=== PATIENT | male | born 1975 | race Caucasian/White ===

== ENCOUNTER 2017-03-24 22:43 | Emergency (ER) | payer OTHER ==
[2017-03-24 22:49] VITALS: BP 156/84; PULSE 120; RESP 20; TEMP 98
[2017-03-24] MEDS ORDERED: DIPH,PERTUS(ACELL)TETVAC-LF 0.5 ML VIAL IM ONE (23:03)
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
== END 2017-03-24 23:41 | disposition home or self-care (01) ==
LOC: EC 22:43
DX: S30.811A Abrasion of abdominal wall, initial encounter (principal); S20.312A Abrasion of left front wall of thorax, initial encounter; S80.811A Abrasion, right lower leg, initial encounter; S20.411A Abrasion of right back wall of thorax, initial encounter; F41.9 Anxiety disorder, unspecified; F17.200 Nicotine dependence, unspecified, uncomplicated; Z23 Encounter for immunization; Z79.899 Other long term (current) drug therapy; X99.1XXA Assault by knife, initial encounter
CPT/HCPCS: 90471; 90715; 99282

== ENCOUNTER 2017-05-20 18:25 | Emergency (ER) | payer OTHER ==
[2017-05-20 19:05] VITALS: BP 162/97; PULSE 86; RESP 20; TEMP 97.5
[2017-05-20] MEDS ORDERED: HYDROcodone/APAP 5-325MG 1 EACH TAB PO STA (19:27)
--- NOTE | 2017-05-20 19:49 | XR ---
EXAMINATION TYPE: XR elbow complete LT DATE OF EXAM: 05/20/2017 COMPARISON: NONE HISTORY: Pain and swelling TECHNIQUE: 3 views FINDINGS: I see no fracture nor dislocation. Joint spaces are normal. There is no sign of elbow joint effusion. There is some soft tissue swelling over the olecranon process. There is a small exostosis on the anterior distal shaft of the humerus. IMPRESSION: There is probably some olecranon bursitis. No fracture seen.
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
== END 2017-05-20 20:27 | disposition home or self-care (01) ==
LOC: EC 18:25
DX: S80.212A Abrasion, left knee, initial encounter (principal); M70.22 Olecranon bursitis, left elbow; F17.200 Nicotine dependence, unspecified, uncomplicated; V00.831A Fall from motorized mobility scooter, initial encounter; Y92.410 Unspecified street and highway as the place of occurrence of the external cause; Y93.89 Activity, other specified
CPT/HCPCS: 99283

== ENCOUNTER 2018-03-03 21:07 | Emergency (ER) | payer OTHER ==
[2018-03-03 21:42] VITALS: BP 155/94; PULSE 91; RESP 18; TEMP 98.2
--- NOTE | 2018-03-03 22:58 | XR ---
PROCEDURE: XR elbow complete LT 3 views DATE AND TIME: 03/03/2018 9:49 PM REFERRING PHYSICIAN: Oliverio Caldwell CLINICAL INDICATION: PHH, Pain TECHNIQUE: Department protocol. COMPARISON: None FINDINGS: There is no fracture or malalignment. Scattered degenerative osteoarthritis changes are appreciated. Also, subcentimeter exostosis consistent with osteochondroma noted distal humerus shaft anteriorly. The soft tissues are unremarkable. IMPRESSION: NO ACUTE PROCESS.
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
== END 2018-03-03 23:10 | disposition home or self-care (01) ==
LOC: EC 21:07
DX: D16.02 Benign neoplasm of scapula and long bones of left upper limb (principal); M19.022 Primary osteoarthritis, left elbow; F17.200 Nicotine dependence, unspecified, uncomplicated; W20.8XXA Other cause of strike by thrown, projected or falling object, initial encounter; Y93.89 Activity, other specified; Y92.009 Unspecified place in unspecified non-institutional (private) residence as the place of occurrence of the external cause
CPT/HCPCS: 99283

== ENCOUNTER 2018-03-18 03:59 | Emergency (ER) | payer OTHER ==
[2018-03-18 04:17] VITALS: BP 158/99; PULSE 87; RESP 28; TEMP 97.6
[2018-03-18] MEDS ORDERED: IBUPROFEN 400 MG TAB PO STA (04:40)
[2018-03-18] MEDS ORDERED: HYDROcodone/APAP 5-325MG 1 EACH TAB PO STA (04:40)
[2018-03-18] MEDS ORDERED: PENICILLIN VK 500MG STARTER 4 TAB BTL PO STA (04:40)
--- NOTE | 2018-03-18 04:41 | ED ---
ENT HPI - General Chief complaint: Dental/Oral Stated complaint: Dental Pain Time Seen by Provider: 03/18/18 04:18 Source: patient Mode of arrival: ambulatory Limitations: no limitations - History of Present Illness MD complaint: tooth pain -: days(s) Location: tooth # (10) Severity: severe Quality: aching Consistency: constant Improves with: none Worsens with: none Context- Dental: history of dental caries Associated Symptoms: toothache - Related Data Previous Rx's Medication Instructions Recorded Ibuprofen [Motrin] 600 mg PO Q8HR PRN #20 tab 03/03/18 Hydrocodone/Acetaminophen [[place] 1 each PO Q4HR PRN #15 tab 03/18/18 5-325] Ibuprofen [Motrin] 600 mg PO Q8HR PRN #20 tab 03/18/18 Penicillin V Potassium [Pen Vee K] 500 mg PO Q6H #28 tablet 03/18/18 Allergies Allergy/AdvReac Type Severity Reaction Status Date / Time No Known Allergies Allergy Verified 03/18/18 04:17 Review of Systems ROS Statement: Those systems with pertinent positive or pertinent negative responses have been documented in the HPI. ROS Other: All systems not noted in ROS Statement are negative. Constitutional: Denies: fever, chills Eyes: Denies: eye pain, vision change ENT: Denies: ear pain, throat pain Respiratory: Denies: cough, dyspnea Cardiovascular: Denies: palpitations Neurological: Denies: headache Past Medical History Past Medical History: No Reported History History of Any Multi-Drug Resistant Organisms: None Reported Past Surgical History: No Surgical Hx Reported Past Psychological History: Anxiety, Bipolar, Depression Smoking Status: Current every day smoker Past Alcohol Use History: None Reported Past Drug Use History: Marijuana General Exam Limitations: no limitations General appearance: alert, in no apparent distress Head exam: Present: atraumatic, normocephalic Eye exam: Present: normal appearance, PERRL, EOMI. Absent: scleral icterus, conjunctival injection, nystagmus, periorbital swelling, periorbital tenderness ENT exam: Present: other (Dental caries. No abscess or swelling) Neck exam: Present: normal inspection, full ROM. Absent: tenderness, meningismus, lymphadenopathy Course Vital Signs 03/18/18 04:14 Temperature 97.6 F Pulse Rate 87 Respiratory 28 H Rate Blood Pressure 158/99 O2 Sat by Pulse 98 Oximetry Disposition Clinical Impression: Toothache Disposition: HOME SELF-CARE Condition: Fair Instructions: Dental Caries (ED), Toothache (ED) Prescriptions: Hydrocodone/Acetaminophen [[place] 5-325] 1 each PO Q4HR PRN #15 tab PRN Reason: Pain Ibuprofen [Motrin] 600 mg PO Q8HR PRN #20 tab PRN Reason: Pain Penicillin V Potassium [Pen Vee K] 500 mg PO Q6H #28 tablet Is patient prescribed a controlled substance at d/c from ED?: Yes When asked, does pt state using other controlled substances?: No If prescribed controlled substance>3 days was MAPS reviewed?: Prescribed <3 Days If opioid is for acute pain is fill amount 7 days or less?: Yes If Rx opioid, was Start Talking consent form obtained?: Yes Referrals: Salas Eaton MD [Primary Care Provider] - 1-2 days
== END 2018-03-18 04:58 | disposition home or self-care (01) ==
LOC: EC 03:59
DX: K08.89 Other specified disorders of teeth and supporting structures (principal); F17.200 Nicotine dependence, unspecified, uncomplicated
CPT/HCPCS: 99283

== ENCOUNTER 2018-11-27 02:42 | Emergency (ER) | payer OTHER ==
--- NOTE | 2018-11-27 03:31 | ED ---
General Adult HPI - General Chief complaint: Altered Mental Status Stated complaint: Fever Time Seen by Provider: 11/27/18 02:56 Source: patient, family Mode of arrival: ambulatory Limitations: no limitations - History of Present Illness Initial comments: 43-year-old male patient presents to the emergency department with daughter for evaluation of abnormal behavior. Sister reports when she got home patient was sitting on the couch slumped over with slow breathing. States when she woke him up his speech seemed to be different and he wasn't making a lot of sense. Patient does admit to drinking alcohol smoking marijuana today. Denies any other street drug use. He denies any current symptoms. Denies any headache, blurred vision, double vision, chest pain, shortness of breath, numbness, tingling, weakness to the extremities, or dizziness. He denies any recent head injury or accident. Denies any use of medications. Patient denies any recent rash, abdominal pain, nausea, vomiting, diarrhea, constipation, back pain, hematuria, dysuria, urinary urgency, urinary frequency, or any other complaints. - Related Data Previous Rx's Medication Instructions Recorded Ibuprofen [Motrin] 600 mg PO Q8HR PRN #20 tab 03/03/18 Hydrocodone/Acetaminophen [[place] 1 each PO Q4HR PRN #15 tab 03/18/18 5-325] Ibuprofen [Motrin] 600 mg PO Q8HR PRN #20 tab 03/18/18 Penicillin V Potassium [Pen Vee K] 500 mg PO Q6H #28 tablet 03/18/18 Allergies Allergy/AdvReac Type Severity Reaction Status Date / Time No Known Allergies Allergy Verified 03/18/18 04:17 Review of Systems ROS Statement: Those systems with pertinent positive or pertinent negative responses have been documented in the HPI. ROS Other: All systems not noted in ROS Statement are negative. Past Medical History Past Medical History: No Reported History History of Any Multi-Drug Resistant Organisms: None Reported Past Surgical History: No Surgical Hx Reported Past Psychological History: Anxiety, Bipolar, Depression Smoking Status: Current every day smoker Past Alcohol Use History: None Reported Past Drug Use History: Marijuana General Exam Limitations: no limitations General appearance: alert, in no apparent distress, other (So well-developed, well-nourished adult male patient in no acute distress. Vital signs upon presentation are temperature 98.0F, pulse 98, respirations 16, blood pressure 123/73, pulse ox 96% on room air.) Eye exam: Present: normal appearance, PERRL, EOMI. Absent: scleral icterus, conjunctival injection, periorbital swelling ENT exam: Present: normal exam, normal oropharynx, mucous membranes moist Respiratory exam: Present: normal lung sounds bilaterally. Absent: respiratory distress, wheezes, rales, rhonchi, stridor Cardiovascular Exam: Present: regular rate, normal rhythm, normal heart sounds. Absent: systolic murmur, diastolic murmur, rubs, gallop, clicks GI/Abdominal exam: Present: soft, normal bowel sounds. Absent: distended, tenderness, guarding, rebound, rigid Neurological exam: Present: alert, oriented X3, CN II-XII intact Expanded Speech: Present: fluid speech Cranial nerves: EOM's Intact: Normal, Nystagmus: Normal Motor strength exam: RUE: 5, LUE: 5, RLE: 5, LLE: 5 Eye Response: (4) open spontaneously Motor Response: (6) obeys commands Verbal Response: (5) oriented Erica Total: 15 Psychiatric exam: Present: normal affect, normal mood Skin exam: Present: warm, dry, intact, normal color. Absent: rash Course Vital Signs 11/27/18 02:44 Temperature 98.0 F Pulse Rate 98 Respiratory 16 Rate Blood Pressure 123/73 O2 Sat by Pulse 96 Oximetry Medical Decision Making - Medical Decision Making 43-year-old male patient presented to the emergency department today with sister for evaluation of bizarre behavior. Physical examination was unremarkable. Patient no focal neurologic deficits. He is alert and oriented. Urine drug screen and breath alcohol test are performed. He was not intoxicated. Patient did have positive urine drug screen for methamphetamines, amphetamines, benzos, and marijuana. Patient's symptoms and behavior is consistent with polysubstance abuse. He is advised to avoid street drug use. He is instructed to follow-up with his primary care physician for recheck in 1- 2 days. Return parameters discussed in detail. He verbalizes understanding and agrees with this plan. - Lab Data Lab Results 11/27/18 Range/Units 03:33 Urine Opiates Screen Not Detected (NotDetected) Ur Oxycodone Screen Not Detected (NotDetected) Urine Methadone Screen Not Detected (NotDetected) Ur Propoxyphene Screen Not Detected (NotDetected) Ur Barbiturates Screen Not Detected (NotDetected) U Tricyclic Antidepress Not Detected (NotDetected) Ur Phencyclidine Scrn Not Detected (NotDetected) Ur Amphetamines Screen Detected H (NotDetected) U Methamphetamines Scrn Detected H (NotDetected) U Benzodiazepines Scrn Detected H (NotDetected) Urine Cocaine Screen Not Detected (NotDetected) U Marijuana (THC) Screen Detected H (NotDetected) Disposition Clinical Impression: Polysubstance abuse Disposition: HOME SELF-CARE Condition: Good Instructions (If sedation given, give patient instructions): Polysubstance Abuse (ED) Additional Instructions: Avoid use of street drugs. Follow-up with your primary care physician for recheck in 1-2 days. Return to the emergency department immediately for any new , worsening, or concerning symptoms. Is patient prescribed a controlled substance at d/c from ED?: No Referrals: Salas Eaton MD [Primary Care Provider] - 1-2 days Time of Disposition: 04:04
[2018-11-27 03:55] LABS: Amphetamine Screen,Urine Detected (NotDetected); Barbiturate Screen,Urine Not Detected (NotDetected); Benzodiazepines Screen,Urine Detected (NotDetected); Cocaine Screen,Urine Not Detected (NotDetected); Methadone Screen, Urine Not Detected (NotDetected); Opiate Screen,Urine Not Detected (NotDetected); Oxycodone Screen, Urine Not Detected (NotDetected); Phencyclidine Screen,Urine Not Detected (NotDetected); Tricyclic Antidepressant,Urine Not Detected (NotDetected); Urn Cannabinoid Scrn Detected (NotDetected)
[2018-11-27 04:14] VITALS: BP 124/92; PULSE 90; RESP 20; TEMP 97.7
== END 2018-11-27 04:15 | disposition home or self-care (01) ==
LOC: EC 02:42
DX: F19.10 Other psychoactive substance abuse, uncomplicated (principal); F17.200 Nicotine dependence, unspecified, uncomplicated
CPT/HCPCS: 80306; 99284

== ENCOUNTER 2019-12-12 18:18 | Emergency (ER) | payer OTHER ==
[2019-12-12] MEDS ORDERED: HYDROmorphone 1 MG/ML 1 ML SYRINGE IVP STA ×3 (18:29→21:34)
[2019-12-12] MEDS ORDERED: SODIUM CHLORIDE 0.9% 1,000 ML IV STA (18:29)
[2019-12-12 18:34] VITALS: BP 183/103; PULSE 118; RESP 24; TEMP 98
[2019-12-12 18:34] LABS: Glucose,Whole Blood 114 mg/dL (75-99)
[2019-12-12 18:48] LABS: Basophils % (A) 0 %; Eosinophils # (A) 0.1 k/uL (0-0.7); Eosinophils % (A) 1 %; HCT 45.7 % (39.0-53.0); HGB 15.2 gm/dL (13.0-17.5); Lymphocytes # (A) 2.4 k/uL (1.0-4.8); Lymphocytes % (A) 25 %; MCH 29.9 pg (25.0-35.0); MCHC 33.3 g/dL (31.0-37.0); MCV 89.8 fL (80.0-100.0); Monocytes # (A) 0.6 k/uL (0-1.0); Monocytes % (A) 7 %; Neutrophils % (A) 64 %; Platelet Count 408 k/uL (150-450); RBC 5.09 m/uL (4.30-5.90); RDW 12.2 % (11.5-15.5); WBC 9.4 k/uL (3.8-10.6)
--- NOTE | 2019-12-12 18:48 | XR ---
EXAMINATION TYPE: XR pelvis AP view DATE OF EXAM: 12/12/2019 COMPARISON: NONE HISTORY: Pain TECHNIQUE: Single view FINDINGS: A vague ring appears intact. Proximal femurs and hip joints are intact. Sacroiliac joints a ppear normal. IMPRESSION: Negative exam. No fracture seen.
--- NOTE | 2019-12-12 18:49 | XR ---
EXAMINATION TYPE: XR chest 1V portable DATE OF EXAM: 12/12/2019 COMPARISON: 09/01/2011 HISTORY: Cough TECHNIQUE: 2 views FINDINGS: Heart and mediastinum are normal. Lungs are clear. Diaphragm is normal. Bony thorax appears normal. IMPRESSION: Normal chest. No change.
[2019-12-12 18:54] LABS: African American GFR (CKD) >90 (>60 ml/min/1.73 sqM); Anion Gap 9 mmol/L; Blood Urea Nitrogen 18 mg/dL (9-20); Carbon Dioxide 24 mmol/L (22-30); Chloride 101 mmol/L (98-107); Glucose 112 mg/dL (74-99); Non-African American GFR(CKD) 79 (>60 ml/min/1.73 sqM); Potassium 4.2 mmol/L (3.5-5.1); Sodium 134 mmol/L (137-145)
[2019-12-12 18:55] LABS: ALT 19 U/L (4-49); AST 31 U/L (17-59); Albumin 4.9 g/dL (3.5-5.0); Alcohol <10 mg/dL; Alkaline Phosphatase 84 U/L (38-126); Amylase 60 U/L (30-110); Total Bilirubin 0.7 mg/dL (0.2-1.3)
[2019-12-12 18:56] LABS: Creatine Kinase 193 U/L (55-170)
[2019-12-12] MEDS ORDERED: DIPH,PERTUS(ACELL)TETVAC-LF 0.5 ML VIAL IM ONE (19:00)
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
[2019-12-12 19:07] LABS: Prothrombin Time 10.1 sec (9.0-12.0)
[2019-12-12 19:08] LABS: Partial Thromboplastin Time 21.2 sec (22.0-30.0)
[2019-12-12 19:10] LABS: Creatine Kinase MB 2.5 ng/mL (0.0-2.4); Troponin I <0.012 ng/mL (0.000-0.034)
[2019-12-12] MEDS ORDERED: SODIUM CHLORIDE 0.9% 1,000 ML IV ONE (19:28)
--- NOTE | 2019-12-12 19:52 | XR ---
EXAMINATION TYPE: XR forearm LT DATE OF EXAM: 12/12/2019 COMPARISON: NONE HISTORY: Pain TECHNIQUE: 2 views FINDINGS: The radius and ulna appear intact. I see no fracture nor dislocation. Carpal bones are inta ct. There is small exostosis on the distal anterior humerus. IMPRESSION: No acute abnormality of the left forearm.
--- NOTE | 2019-12-12 20:14 | XR ---
EXAMINATION TYPE: XR knee complete LT DATE OF EXAM: 12/12/2019 COMPARISON: NONE HISTORY: Pain TECHNIQUE: 3 views FINDINGS: I see no fracture nor dislocation. Joint spaces are normal. There is no sign of a joint eff usion. IMPRESSION: No acute abnormality of the left knee.
--- NOTE | 2019-12-12 20:17 | XR ---
EXAMINATION TYPE: XR tibia fibula LT DATE OF EXAM: 12/12/2019 COMPARISON: NONE HISTORY: Pain TECHNIQUE: 4 views FINDINGS: Tibia and fibula appear intact. I see no fracture nor dislocation. There is plantar calcane al spurring. There are no erosions. IMPRESSION: Calcaneal spurring. No fracture seen.
--- NOTE | 2019-12-12 20:19 | XR ---
EXAMINATION TYPE: XR femur LT DATE OF EXAM: 12/12/2019 COMPARISON: NONE HISTORY: Pain TECHNIQUE: 4 views FINDINGS: There is small knee joint effusion. I see no fracture nor dislocation. Hip joint and knee j oint appear intact. IMPRESSION: Small knee joint effusion. No fracture seen.
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
[2019-12-12] MEDS ORDERED: BACITRACIN 500 UNIT/GM OINT 28.4 GM TUBE TOPICAL ONE (21:34)
== END 2019-12-12 23:07 | disposition home or self-care (01) ==
LOC: EC 18:18
DX: M25.562 Pain in left knee (principal); S70.312A Abrasion, left thigh, initial encounter; S50.812A Abrasion of left forearm, initial encounter; S60.512A Abrasion of left hand, initial encounter; R74.8 Abnormal levels of other serum enzymes; M25.462 Effusion, left knee; R00.0 Tachycardia, unspecified; F17.200 Nicotine dependence, unspecified, uncomplicated; Z23 Encounter for immunization; V28.4XXA Motorcycle driver injured in noncollision transport accident in traffic accident, initial encounter; Y92.488 Other paved roadways as the place of occurrence of the external cause
CPT/HCPCS: 99291; 96365; 96375; 96376 ×2; 96361; 90471; 36415; 93005; 86900; 86901; 80053; 82150; 82550; 82553; 83605; 83690; 84484; 85025; 85610; 85730; 86850; 80320; 72170; 73552; 73090; 73590; 73562; 71045; 73700; 90715; L1830; J0690; J1170

== ENCOUNTER 2020-07-15 15:15 | Emergency (ER) | payer OTHER ==
[2020-07-15 15:24] VITALS: BP 179/106; PULSE 102; RESP 18; TEMP 97.9
[2020-07-15] MEDS ORDERED: DIPH,PERTUS(ACELL)TETVAC-LF 0.5 ML VIAL IM ONE (15:55)
[2020-07-15] MEDS ORDERED: LIDOCAINE 1% INJ 10MG/ML (20 ML MDV) SQ ONE (15:55)
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
== END 2020-07-15 16:24 | disposition home or self-care (01) ==
LOC: EC 15:15
DX: S61.511A Laceration without foreign body of right wrist, initial encounter (principal); F17.200 Nicotine dependence, unspecified, uncomplicated; Z23 Encounter for immunization; W26.0XXA Contact with knife, initial encounter
CPT/HCPCS: 90715; 99282; 12001; 90471; J2001

== ENCOUNTER 2021-05-17 14:57 | Emergency (ER) | payer OTHER ==
[2021-05-17 15:14] VITALS: RESP 18; TEMP 98.5
[2021-05-17] MEDS ORDERED: DIPH,PERTUS(ACELL)TETVAC-LF 0.5 ML VIAL IM ONE (15:19)
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
[2021-05-17] MEDS ORDERED: TOBRAMYCIN 0.3% OPHTH DROPS 5 ML BTL LEFT EYE STA (16:17)
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
[2021-05-17 16:30] VITALS: BP 146/110; PULSE 94
[2021-05-17] MEDS ORDERED: IBUPROFEN 600 MG TAB PO STA (16:33)
== END 2021-05-17 16:55 | disposition home or self-care (01) ==
LOC: EC 14:57
DX: S01.01XA Laceration without foreign body of scalp, initial encounter (principal); H10.9 Unspecified conjunctivitis; Z23 Encounter for immunization; F31.9 Bipolar disorder, unspecified; F17.200 Nicotine dependence, unspecified, uncomplicated; F41.9 Anxiety disorder, unspecified; F12.90 Cannabis use, unspecified, uncomplicated; W22.8XXA Striking against or struck by other objects, initial encounter; Y93.11 Activity, swimming
CPT/HCPCS: 12002; 70450; 90471; 90715; 99283